=== PATIENT | male | born 1960 | race Two or more races ===

== ENCOUNTER → 2016-09-07 | Outpatient (REF) | payer BC | LOC: M SFHCCLAY 07:13 | PROVIDERS: ATTEND Nurse Practitioner | DX: E11.9 Type 2 diabetes mellitus without complications (principal); Z12.5 Encounter for screening for malignant neoplasm of prostate; Z53.8 Procedure and treatment not carried out for other reasons ==

== ENCOUNTER 2016-10-31 13:20 | Emergency (ER) | payer BC ==
[~2016-10-31] VITALS: Ht 185.4 cm; Wt 89.8 kg
[2016-10-31] MEDS ORDERED: LEVO137T2 (13:36)
[2016-10-31] MEDS ORDERED: INVO300T (13:36)
[2016-10-31] MEDS ORDERED: LANTINJ4 SQ (13:36)
[2016-10-31] MEDS ORDERED: INSUH10VL SC (13:36)
[2016-10-31] MEDS ORDERED: AMLO10CA (13:36)
[2016-10-31 14:59] LABS: BASO % 0.3 % (0.0-1.0); EOS # 0.2 K/mm3 (0.0-0.50); EOS % 1.5 % (0.0-3.0); LARGE UNSTAINED CELL # 0.1 K/mm3 (0.0-0.4); LARGE UNSTAINED CELL % 1.1 % (0.0-4.0); LYMPH # 2.3 K/mm3 (1.5-4.5); LYMPH % 20.1 % (24.0-44.0); MEAN CORPUSCULAR HEMOGLOBIN 30.5 pg (27.0-33.0); MEAN CORPUSCULAR HGB CONC 33.6 g/dl (32.0-36.5); MEAN CORPUSCULAR VOLUME 90.8 fl (80.0-96.0); MONO # 0.5 K/mm3 (0.0-0.8); NEUTROPHILS # 8.4 K/mm3 (1.8-7.7); PLATELET COUNT, AUTOMATED 191 k/mm3 (150-450); RED CELL DISTRIBUTION WIDTH 15.5 % (11.5-14.5); WHITE BLOOD COUNT 11.5 K/mm3 (4.0-10.0)
[2016-10-31 15:08] LABS: ALBUMIN 4.1 GM/DL (3.2-5.2); ALBUMIN/GLOBULIN RATIO 1.52 (1.00-1.93); ALKALINE PHOSPHATASE 89 U/L (45-117); ALT/SGPT 25 U/L (12-78); ANION GAP 13 MEQ/L (8-16); AST/SGOT 13 U/L (15-37); BILIRUBIN,DIRECT 0.1 MG/DL (0.0-0.2); BILIRUBIN,TOTAL 0.4 MG/DL (0.2-1.0); BLOOD UREA NITROGEN 11 MG/DL (7-18); CALCIUM LEVEL 8.8 MG/DL (8.5-10.1); CARBON DIOXIDE LEVEL 23 MEQ/L (21-32); CHLORIDE LEVEL 105 MEQ/L (98-107); CREATININE FOR GFR 0.75 MG/DL (0.70-1.30); FREE T4 1.02 NG/DL (0.76-1.46); GLOMERULAR FILTRATION RATE > 60.0 (>56); GLUCOSE, FASTING 150 MG/DL (70-105); POTASSIUM SERUM 3.3 MEQ/L (3.5-5.1); SODIUM LEVEL 141 MEQ/L (136-145); TOTAL PROTEIN 6.8 GM/DL (6.4-8.2)
--- NOTE | 2016-10-31 15:12 | REP ---
Clinical: Dizziness . Comparison: None . Findings: The ventricles, sulci, and cisterns are normal in position and appearance. Amaro-white differentiation is maintained. No acute intracranial hemorrhage, mass/mass effect, pathology or trauma/injury. No evidence for acute infarction. No extra-axial fluid collection. Calvarium is intact. Paranasal sinuses and mastoid air cells are clear. Impression: Normal noncontrast head CT. No evidence for acute intracranial pathology or trauma/injury. Signed by Ezra Faustin MD 10/31/2016 03:03 P
--- NOTE | 2016-10-31 15:13 | ECGEPIP ---
Stationary ECG Study [facility] [place] - ED Test Date: 2016-10-31 Pat Name: MOLINA MALDONADO Department: Room: - Gender: M [employer]: mike : 1960 Requested By: Mally Garcia Order Number: [id number] Reading MD: Santana Saha Measurements Intervals [place] Rate: 91 P: 46 WY: 166 QRS: 17 QRSD: 102 T: 36 QT: 383 QTc: 472 Interpretive Statements SINUS RHYTHM NSSTW ABNORMALITY SIMILAR TO 04/01/12 Electronically Signed On 10-31-2016 15:12:50 EDT by Santana Saha
[2016-10-31] MEDS ORDERED: POTASSIUM CHLORIDE 10 MEQ SR TABLET PO ONE (15:45)
--- NOTE | 2016-10-31 15:45 | REP ---
Chest x-ray: Two views. History: Dizziness and weakness. . Comparison study: April 20, 2016 . Findings: The lungs are well inflated and free of infiltrate. The pleural angles are sharp. The heart size is normal. Pulmonary vasculature is not increased. No significant bony abnormality is seen. EKG monitoring electrodes overlie the chest. Impression: Negative chest x-ray. Signed by Jono Peterson MD 10/31/2016 03:37 P
[2016-10-31 16:15] VITALS: O2SAT 96
[2016-10-31] MEDS ORDERED: NS 1,000 ML IV ONE (16:15)
[2016-10-31 20:30] VITALS: BP 153/92
--- NOTE | 2016-10-31 21:44 | ECGEPIP ---
Stationary ECG Study [facility] - ED Test Date: 2016-10-31 Pat Name: MOLINA MALDONADO Department: Room: - Gender: M [employer]: tk : 1960 Requested By: GIOVANNA Mata Order Number: [id number] Reading MD: Santana Saha Measurements Intervals [place] Rate: 90 P: 34 SD: 165 QRS: 0 QRSD: 102 T: 37 QT: 381 QTc: 467 Interpretive Statements SINUS RHYTHM NSTTW ABNORMALITIES SIMILAR TO PRIOR ON SAME DATE Electronically Signed On 10-31-2016 21:44:13 EDT by Santana Saha
== END 2016-10-31 20:39 | disposition home or self-care (01) ==
LOC: M ED 14:38
DX: R42 Dizziness and giddiness (principal); R53.83 Other fatigue; E11.9 Type 2 diabetes mellitus without complications; F17.200 Nicotine dependence, unspecified, uncomplicated; Z79.899 Other long term (current) drug therapy; Z79.4 Long term (current) use of insulin

== ENCOUNTER → 2016-12-23 | Outpatient (REF) | payer BC ==
[~2016-12-23] MED LIST: AMLO10CA; INSUH10VL SC; INVO300T; LANTINJ4 SQ; LEVO137T2
[2016-12-23 20:06] LABS: ALBUMIN 3.8 GM/DL (3.2-5.2); ALBUMIN/GLOBULIN RATIO 1.41 (1.00-1.93); ALKALINE PHOSPHATASE 76 U/L (45-117); ALT/SGPT 23 U/L (12-78); ANION GAP 5 MEQ/L (8-16); AST/SGOT 9 U/L (15-37); BILIRUBIN,TOTAL 0.5 MG/DL (0.2-1.0); BLOOD UREA NITROGEN 15 MG/DL (7-18); CALCIUM LEVEL 8.8 MG/DL (8.5-10.1); CARBON DIOXIDE LEVEL 28 MEQ/L (21-32); CHLORIDE LEVEL 107 MEQ/L (98-107); CHOLESTEROL LEVEL 200 MG/DL (<200); CREATININE FOR GFR 0.67 MG/DL (0.70-1.30); GLOMERULAR FILTRATION RATE > 60.0 (>56); GLUCOSE, FASTING 102 MG/DL (70-105); POTASSIUM SERUM 4.1 MEQ/L (3.5-5.1); SODIUM LEVEL 140 MEQ/L (136-145); TOTAL PROTEIN 6.5 GM/DL (6.4-8.2); TRIGLYCERIDES LEVEL 168 MG/DL (<150)
== END ==
LOC: M SFHCCLAY 09:53
PROVIDERS: ATTEND Nurse Practitioner
DX: E11.9 Type 2 diabetes mellitus without complications (principal)

== ENCOUNTER → 2017-11-14 | Outpatient (REF) | payer BC ==
[2017-11-14 17:01] LABS: ESTIMATED AVERAGE GLUCOSE 209 MG/DL (60-110); HEMOGLOBIN A1c 8.9 %
[2017-11-14 17:05] LABS: ALBUMIN 3.8 GM/DL (3.2-5.2); ALBUMIN/GLOBULIN RATIO 1.36 (1.00-1.93); ALKALINE PHOSPHATASE 91 U/L (45-117); ALT/SGPT 29 U/L (12-78); ANION GAP 9 MEQ/L (8-16); AST/SGOT 15 U/L (7-37); BILIRUBIN,TOTAL 0.5 MG/DL (0.2-1.0); BLOOD UREA NITROGEN 15 MG/DL (7-18); CALCIUM LEVEL 8.6 MG/DL (8.5-10.1); CARBON DIOXIDE LEVEL 25 MEQ/L (21-32); CHLORIDE LEVEL 107 MEQ/L (98-107); CHOLESTEROL LEVEL 175 MG/DL (<200); CHOLESTEROL RISK RATIO 4.166 (<5); CREATININE FOR GFR 0.83 MG/DL (0.70-1.30); GLOMERULAR FILTRATION RATE > 60.0 (>56); GLUCOSE, FASTING 129 MG/DL (70-100); HDL CHOLESTEROL 42 MG/DL (>40); NON-HDL-C 133 MG/DL; SODIUM LEVEL 141 MEQ/L (136-145); TOTAL PROTEIN 6.6 GM/DL (6.4-8.2); TRIGLYCERIDES LEVEL 155 MG/DL (<150)
== END ==
LOC: M SFHCCLAY 12:58
DX: E11.9 Type 2 diabetes mellitus without complications (principal); E03.9 Hypothyroidism, unspecified
CPT/HCPCS: 84443

== ENCOUNTER 2018-04-01 11:36 | Emergency (ER) | payer MEDICAID, SELFPAY, BC ==
[2018-04-01] MEDS: NS 1,000 ML IV ×2 (12:56)
[2018-04-01] MEDS: KETOROLAC 30 MG/ML VIAL (J1885) IV ×2 (12:56)
[2018-04-01] MEDS: GASTROGRAFIN SOLUTION 30ML PO ×4 (13:01→13:28)
[2018-04-01 13:02] LABS: BASO % 0.3 % (0.0-1.0); EOS # 0.1 10^3/uL (0.0-0.50); EOS % 1.1 % (0.0-3.0); HEMATOCRIT 42.5 % (42.0-52.0); IMMATURE GRANULOCYTE % 0.6 % (0-3.0); LYMPH # 1.5 10^3/uL (1.5-4.5); MEAN CORPUSCULAR HEMOGLOBIN 30.3 pg (27.0-33.0); MEAN CORPUSCULAR HGB CONC 32.9 g/dl (32.0-36.5); MONO # 0.5 10^3/uL (0.0-0.8); MONO % 5.3 % (0.0-5.0); NEUTROPHILS # 6.7 10^3/uL (1.8-7.7); NEUTROPHILS % 75.7 % (36.0-66.0); PLATELET COUNT, AUTOMATED 189 10^3/uL (150-450); RED BLOOD COUNT 4.62 10^6/uL (4.30-6.10); RED CELL DISTRIBUTION WIDTH 14.4 % (11.5-14.5); WHITE BLOOD COUNT 8.9 10^3/uL (4.0-10.0)
[2018-04-01 13:07] LABS: APPEARANCE, URINE CLEAR (CLEAR); BACTERIA, URINE AUTO NEGATIVE (NEGATIVE); BILIRUBIN, URINE AUTO NEGATIVE (NEGATIVE); BLOOD, URINE BLOOD NEGATIVE (NEGATIVE); COLOR, URINE YELLOW (YELLOW); GLUCOSE, URINE (UA) AUTO NEGATIVE (NEGATIVE); KETONE, URINE AUTO NEGATIVE (NEGATIVE); LEUKOCYTE ESTERASE, URINE AUTO NEGATIVE (NEGATIVE); MUCUS, URINE SMALL (NEGATIVE); NITRITE, URINE AUTO NEGATIVE (NEGATIVE); PROTEIN, URINE AUTO NEGATIVE (NEGATIVE); RBC, URINE AUTO 1 /HPF (0-3); SPECIFIC GRAVITY URINE AUTO 1.014 (1.002-1.035); SQUAMOUS EPITHELIAL CELL UR AU 0 /HPF (0-6); WBC, URINE AUTO 0 /HPF (0-3)
[2018-04-01 13:37] LABS: ALBUMIN 3.2 GM/DL (3.2-5.2); ALBUMIN/GLOBULIN RATIO 1.07 (1.00-1.93); ALKALINE PHOSPHATASE 74 U/L (45-117); ALT/SGPT 19 U/L (12-78); AMYLASE 62 U/L (25-115); ANION GAP 9 MEQ/L (8-16); AST/SGOT 9 U/L (7-37); BILIRUBIN,TOTAL 0.3 MG/DL (0.2-1.0); BLOOD UREA NITROGEN 11 MG/DL (7-18); C REACTIVE PROTEIN QUANTITATIV 6.14 MG/DL (0.00-0.30); CARBON DIOXIDE LEVEL 28 MEQ/L (21-32); CHLORIDE LEVEL 105 MEQ/L (98-107); CREATININE FOR GFR 0.79 MG/DL (0.70-1.30); GLOMERULAR FILTRATION RATE > 60.0 (>56); GLUCOSE, FASTING 212 MG/DL (70-100); LIPASE 687 U/L (73-393); SODIUM LEVEL 142 MEQ/L (136-145); TOTAL PROTEIN 6.2 GM/DL (6.4-8.2)
[2018-04-01 14:09] LABS: CONTROL LINE MONO RF C INT CTR LINE PRESENT; MONO REFLEX EBV COMP NEGATIVE (NEGATIVE)
[2018-04-01] MEDS ORDERED: ISOVUE-370 76% 100ML VIAL (Q9967) As Ordered ×2 (14:20)
[2018-04-01] MEDS: METOPROLOL SUCC (TopROL XL) 50MG **XL** TAB PO ×2 (16:15)
[2018-04-03 14:11] LABS: EBV AB TO NUCLEAR ANTIGEN >600.0 U/mL (0.0-17.9); EBV VIRAL CAPSID AG IgG >600.0 U/mL (0.0-17.9)
[2018-04-03 14:11] LABS: EBV VIRAL CAPSID AG IgM <36.0 U/mL (0.0-35.9)
== END 2018-04-01 17:13 | disposition home or self-care (01) ==
LOC: M ED 11:36
DX: K85.90 Acute pancreatitis without necrosis or infection, unspecified (principal); E10.9 Type 1 diabetes mellitus without complications; I10 Essential (primary) hypertension; E03.9 Hypothyroidism, unspecified; F41.9 Anxiety disorder, unspecified; F33.9 Major depressive disorder, recurrent, unspecified; Z79.899 Other long term (current) drug therapy; Z79.890 Hormone replacement therapy; Z79.4 Long term (current) use of insulin; F17.210 Nicotine dependence, cigarettes, uncomplicated
CPT/HCPCS: Q9963

== ENCOUNTER 2018-05-04 06:48 | Emergency (ER) | payer SELFPAY ==
[2018-05-04] MEDS: NS 500 ML IV ×2 (07:34→11:03)
[2018-05-04 07:40] LABS: BASO # 0.1 10^3/uL (0.0-0.2); BASO % 0.6 % (0.0-1.0); EOS # 0.2 10^3/uL (0.0-0.50); EOS % 1.7 % (0.0-3.0); HEMATOCRIT 41.3 % (42.0-52.0); HEMOGLOBIN 13.4 g/dl (13.5-17.5); IMMATURE GRANULOCYTE % 0.3 % (0-3.0); LYMPH # 1.4 10^3/uL (1.5-4.5); LYMPH % 15.7 % (24.0-44.0); MEAN CORPUSCULAR HEMOGLOBIN 29.8 pg (27.0-33.0); MEAN CORPUSCULAR HGB CONC 32.4 g/dl (32.0-36.5); MEAN CORPUSCULAR VOLUME 91.8 fl (80.0-96.0); MONO # 0.5 10^3/uL (0.0-0.8); NEUTROPHILS # 6.8 10^3/uL (1.8-7.7); NEUTROPHILS % 75.7 % (36.0-66.0); PLATELET COUNT, AUTOMATED 116 10^3/uL (150-450); RED CELL DISTRIBUTION WIDTH 15.3 % (11.5-14.5)
[2018-05-04] MEDS: MORPHINE 2 MG/ML 1ML SYRINGE (J2270) IV (09:07)
[2018-05-04] MEDS: NS 1,000 ML IV (09:07)
[2018-05-04 09:42] LABS: ALBUMIN 3.4 GM/DL (3.2-5.2); ALBUMIN/GLOBULIN RATIO 1.06 (1.00-1.93); ALKALINE PHOSPHATASE 93 U/L (45-117); ALT/SGPT 23 U/L (12-78); AMYLASE 73 U/L (25-115); ANION GAP 8 MEQ/L (8-16); AST/SGOT 10 U/L (7-37); BILIRUBIN,DIRECT 0.1 MG/DL (0.0-0.2); BILIRUBIN,TOTAL 0.4 MG/DL (0.2-1.0); BLOOD UREA NITROGEN 11 MG/DL (7-18); CALCIUM LEVEL 8.5 MG/DL (8.5-10.1); CARBON DIOXIDE LEVEL 25 MEQ/L (21-32); CHLORIDE LEVEL 104 MEQ/L (98-107); CREATININE FOR GFR 0.85 MG/DL (0.70-1.30); GLOMERULAR FILTRATION RATE > 60.0 (>56); GLUCOSE, FASTING 292 MG/DL (70-100); LIPASE 857 U/L (73-393); SODIUM LEVEL 137 MEQ/L (136-145); TOTAL PROTEIN 6.6 GM/DL (6.4-8.2)
[2018-05-04 09:45] LABS: KETONE, URINE AUTO RFX TRACE mg/dL (NEGATIVE); LEUKOCYTE ESTERASE UR AUTO RFX NEGATIVE (NEGATIVE); NITRITE, URINE AUTO RFX NEGATIVE (NEGATIVE); RBC, URINE AUTO RFX 1 /HPF (0-3); SPECIFIC GRAVITY UR AUTO RFX 1.014 (1.002-1.035); SQUAM EPITHELIAL CELL UR AURFX 0 /HPF (0-6); WBC, URINE AUTO RFX 0 /HPF (0-3)
[2018-05-04 10:13] LABS: C REACTIVE PROTEIN QUANTITATIV 1.21 MG/DL (0.00-0.30)
[2018-05-04 12:57] LABS: LACTIC ACID SEPSIS PROTOCOL 1.2 MMOL/L (0.4-2.0)
== END 2018-05-04 14:13 | disposition home or self-care (01) ==
LOC: M ED 06:48
DX: K85.90 Acute pancreatitis without necrosis or infection, unspecified (principal); E86.0 Dehydration; I10 Essential (primary) hypertension; E11.9 Type 2 diabetes mellitus without complications; E78.5 Hyperlipidemia, unspecified; K27.9 Peptic ulcer, site unspecified, unspecified as acute or chronic, without hemorrhage or perforation; F17.210 Nicotine dependence, cigarettes, uncomplicated; Z79.899 Other long term (current) drug therapy; Z79.4 Long term (current) use of insulin
CPT/HCPCS: J2270

== ENCOUNTER → 2018-05-10 | Outpatient (REF) | payer BC ==
[2018-05-10 16:55] LABS: ALBUMIN 3.6 GM/DL (3.2-5.2); ALBUMIN/GLOBULIN RATIO 1.44 (1.00-1.93); ALKALINE PHOSPHATASE 87 U/L (45-117); ALT/SGPT 25 U/L (12-78); AMYLASE 45 U/L (25-115); ANION GAP 9 MEQ/L (8-16); AST/SGOT 12 U/L (7-37); BILIRUBIN,TOTAL 0.4 MG/DL (0.2-1.0); BLOOD UREA NITROGEN 12 MG/DL (7-18); CALCIUM LEVEL 8.4 MG/DL (8.5-10.1); CARBON DIOXIDE LEVEL 27 MEQ/L (21-32); CHLORIDE LEVEL 106 MEQ/L (98-107); CREATININE FOR GFR 0.69 MG/DL (0.70-1.30); GLOMERULAR FILTRATION RATE > 60.0 (>56); GLUCOSE, FASTING 180 MG/DL (70-100); LIPASE 360 U/L (73-393); POTASSIUM SERUM 4.3 MEQ/L (3.5-5.1); SODIUM LEVEL 142 MEQ/L (136-145); TOTAL PROTEIN 6.1 GM/DL (6.4-8.2)
[2018-05-10 16:57] LABS: ESTIMATED AVERAGE GLUCOSE 177 MG/DL (60-110); HEMOGLOBIN A1c 7.8 %
== END ==
LOC: M SFHCCLAY 10:28
DX: K85.00 Idiopathic acute pancreatitis without necrosis or infection (principal); E11.9 Type 2 diabetes mellitus without complications
CPT/HCPCS: 82150

== ENCOUNTER → 2018-06-08 | Outpatient (REF) | payer MEDICAID ==
[~2018-06-08] MED LIST changes: +ATOR80TA59 PO; +IBUP80TA PO; +INSUR SC; +KETO10TAB PO; +LISI40TA PO; +METF10004 PO; +METF500T13 PO; +VICO5TAB16 PO
[2018-06-08 17:31] LABS: ALBUMIN 3.5 GM/DL (3.2-5.2); ALT/SGPT 23 U/L (12-78); AMYLASE 48 U/L (25-115); BILIRUBIN,TOTAL 0.3 MG/DL (0.2-1.0); BLOOD UREA NITROGEN 11 MG/DL (7-18); CALCIUM LEVEL 8.8 MG/DL (8.5-10.1); CARBON DIOXIDE LEVEL 27 MEQ/L (21-32); CHLORIDE LEVEL 109 MEQ/L (98-107); CREATININE FOR GFR 0.73 MG/DL (0.70-1.30); GLOMERULAR FILTRATION RATE > 60.0 (>56); GLUCOSE, FASTING 126 MG/DL (70-100); LIPASE 356 U/L (73-393); POTASSIUM SERUM 4.2 MEQ/L (3.5-5.1); SODIUM LEVEL 142 MEQ/L (136-145); TOTAL PROTEIN 6.1 GM/DL (6.4-8.2)
== END ==
LOC: M SFHCCLAY 10:44
PROVIDERS: ATTEND Family Medicine
DX: K85.00 Idiopathic acute pancreatitis without necrosis or infection (principal)

== ENCOUNTER → 2018-06-30 | Outpatient (CLI) | payer OTHER ==
--- NOTE | 2018-07-02 07:17 | REP ---
MRI ABDOMEN WITHOUT CONTRAST: 06/30/2018. COMPARISON: CT abdomen with contrast 04/01/2018, CT angiogram chest 04/01/2012. CLINICAL HISTORY: Adrenal nodule. Review of the prior studies demonstrates that right side and low-density adrenal nodule measuring 2.6 cm and diffuse thickening of the limbs of the left adrenal without discrete nodule or mass. Both of these are contrast studies. In addition, the technologist notes indicate the patient stated that he had "upper mid abdominal pain now and in his left lower side". TECHNIQUE: Axial T2 and fat suppressed T2, in- and hgy-bj-bazti axial gradient echo, fat suppressed gradient-echo and diffusion-weighted images and ADC mapping sequences. Coronal T1 and gradient echo images were also obtained. FINDINGS: The right adrenal nodules in the medial limb and measures 2.6 cm, unchanged in size and contour dating back to 2011. Thickening of the left adrenal gland is likewise unchanged dating back to 2011 for contour appearance and size. On the in- and nyq-lf-eswko images there is significant signal drop off on the outer phase sequences indicating high fat content in both adrenal glands, and in particular, the nodule left and the entire adrenal gland right. There is no visible abnormality in the segments of liver and spleen included. There does appear to be some debris in the neck of the gallbladder but no definite stone appearance. There is no common duct dilatation. Pancreatic duct is not abnormally dilated. There are few tiny cystic areas in the pancreatic head as well as the adjacent splenic vein and portal confluence. No peripancreatic adenopathy or adjacent fluid. There is no hydronephrosis within the visible kidneys. There is a lower pole cyst on the left as seen on the CT abdomen pelvis last March. Atherosclerotic disease of the abdominal aorta is noted but only a portion of that organ is occluded. There is some ectasia. No periaortic or retroperitoneal pathologic sized adenopathy. There is a small splenule adjacent to the inferior pole of the spleen unchanged. Diffusion images show no additional findings. IMPRESSION: 1. Stable appearance of both adrenal glands dating back to the March, CT angio chest, although the study is with contrast. Regardless, the stability for over 6 years for size and contour of both lesions is reassuring. 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 2. There are no other significant findings in the abdomen, small amount of debris or sludge in the neck of the gallbladder without biliary dilatation. A cyst in the left kidney unchanged. Electronically Signed by Clint Rowland MD 07/02/2018 01:01 P
== END ==
LOC: M RAD 09:08
PROVIDERS: ATTEND Family Medicine
DX: E27.9 Disorder of adrenal gland, unspecified (principal)

== ENCOUNTER → 2018-07-09 | Outpatient (CLI) | payer OTHER ==
--- NOTE | 2018-07-09 10:27 | REP ---
Clinical: Pancreatitis. Technique: Real time beltran scale ultrasound examination using curved array transducer. Findings: Diffuse fatty infiltration to the liver is appreciated without evidence for focal hepatic lesion identified. Gallbladder is mildly distended and includes 7 mm polyp along the anterior wall without gallstones, wall thickening, or pericholecystic fluid. No biliary ductal dilatation is appreciated and the common bile duct measures 6.6 mm diameter. The pancreas is incompletely evaluated due to interposed bowel gas but visualized portions appear relatively normal. Right kidney is normal in reniform shape without hydronephrosis and measures 12.6 x 7.3 x 6.6 cm. No ascites in the visualized right upper quadrant. The adrenal mass identified on CT dated 04/01/2018 which likely represented adenoma based on low density characteristics is not visualized by current ultrasound. Impression: 1. Hepatosteatosis without focal hepatic lesion identified. 2. 7 mm gallbladder polyp likely benign. No further biliary abnormality appreciated. Electronically Signed by Ezra Faustin MD 07/09/2018 10:18 A
== END ==
LOC: M RAD 08:32
PROVIDERS: ATTEND Internal Medicine Gastroenterology
DX: K85.00 Idiopathic acute pancreatitis without necrosis or infection (principal); K82.4 Cholesterolosis of gallbladder; K76.0 Fatty (change of) liver, not elsewhere classified

== ENCOUNTER → 2018-08-01 | Outpatient (REF) | payer OTHER ==
[~2018-08-01] MED LIST changes: +HUMA100I5; +INSULANT SC; +LOSA100T5 PO; +OLME40TA PO; +SYNT137T7 PO
[2018-08-01 18:48] LABS: ALBUMIN 3.3 GM/DL (3.2-5.2); ALT/SGPT 29 U/L (12-78); AMYLASE 40 U/L (25-115); BILIRUBIN,DIRECT < 0.1 MG/DL (0.0-0.2); BILIRUBIN,TOTAL 0.4 MG/DL (0.2-1.0); LIPASE 287 U/L (73-393); TOTAL PROTEIN 6.4 GM/DL (6.4-8.2)
[2018-08-03 15:52] LABS: CA19-9 TUMOR MARKER,CARBOHYDRA 192.6 U/ML (<35.0)
== END ==
LOC: M LABDRAWC 17:24
PROVIDERS: ATTEND Internal Medicine Gastroenterology
DX: K85.00 Idiopathic acute pancreatitis without necrosis or infection (principal)

== ENCOUNTER 2018-08-07 11:23 | Day surgery (SDC) | payer OTHER ==
[~2018-08-07] VITALS: Ht 185.4 cm; Wt 91.2 kg
[~2018-08-07 11:23] MED LIST changes: +NS 1,000 ML IV ONE
[2018-08-07] MEDS ORDERED: fentaNYL 100 MCG/2 ML INJECTION (J3010) As Ordered ONE (12:05)
[2018-08-07] MEDS ORDERED: PROPOFOL 200 MG/20 ML VIAL As Ordered ONE (12:23)
[2018-08-07] MEDS ORDERED: LIDOCAINE 2% INJ 100 MG/5 ML SYRINGE As Ordered ONE (12:23)
--- NOTE | 2018-08-07 13:12 | ROOR ---
Patient Name: Donald Neil Procedure Date: 08/07/2018 12:27 PM Date of : 1960 Age: 58 Room: [facility] Gender: Male Note Status: Finalized Procedure: Upper GI endoscopy Indications: Epigastric abdominal pain, Pancreatitis. (mildly elevated CA 19-9 = 192 u/ml) Providers: Andreas DOBSON MD Referring MD: ANGELES SANTOS DO Requesting Provider: Medicines: Monitored Anesthesia Care Complications: No immediate complications. Procedure: Pre-Anesthesia Assessment: - The heart rate, respiratory rate, oxygen saturations, blood pressure, adequacy of pulmonary ventilation, and response to care were monitored throughout the procedure. The Endoscope was introduced through the mouth, and advanced to the second part of duodenum. The upper GI endoscopy was accomplished without difficulty. The patient tolerated the procedure well. Findings: The examined esophagus was normal. Diffuse mild inflammation was found in the entire examined stomach. Biopsies were taken with a cold forceps for histology. The exam of the stomach was otherwise normal. The examined duodenum was normal. Impression: - Normal esophagus. - Mild gastritis. Biopsied. - The stomach is otherwise normal. - Normal examined duodenum. Recommendation: - Telephone endoscopist for pathology results in 2 weeks. - Perform a colonoscopy today. As you are leaving our area shortly for [facility], you will need the following information: (I will include my office note and labs/scans with this letter: - Your MRI showed sludge and gravel in your gallbladder, no ductal dilation, no CBD stones - Your US was normal. - Your Liver enzymes and pancreatic enzymes are normal - Your CA 19-9 was mildly elevated (likely from pancreatitis) - You will need to follow up with a internal sales to follow up and recheck your Ca 19-9. - You will need to see a surgeon to have your gallbladder removed for gallstone/sludge pancreatitis) Andreas Dobson MD Andreas DOBSON MD 08/07/2018 1:11:56 PM This report has been signed electronically. Number of Addenda: 0 Note Initiated On: 08/07/2018 12:27 PM Estimated Blood Loss: Estimated blood loss: none.
--- NOTE | 2018-08-07 13:15 | ROOR ---
Patient Name: Donald Neil Procedure Date: 08/07/2018 12:28 PM Date of : 1960 Age: 58 Room: [facility] Gender: Male Note Status: Finalized Procedure: Colonoscopy Indications: Screening for colorectal malignant neoplasm Providers: Andreas DOBSON MD Referring MD: ANGELES SANTOS DO Requesting Provider: Medicines: Monitored Anesthesia Care Complications: No immediate complications. Procedure: Pre-Anesthesia Assessment: - The heart rate, respiratory rate, oxygen saturations, blood pressure, adequacy of pulmonary ventilation, and response to care were monitored throughout the procedure. The Colonoscope was introduced through the anus and advanced to 5 cm into the ileum. The colonoscopy was performed without difficulty. The colonoscopy was performed without difficulty. The patient tolerated the procedure well. The quality of the bowel preparation was inadequate/suboptimal. Findings: The perianal and digital rectal examinations were normal. (EXAM: Complete, PREP: Suboptimal) A 4 mm polyp was found in the sigmoid colon. The polyp was sessile. The polyp was removed with a cold snare. Resection and retrieval were complete. The colon (entire examined portion) was moderately redundant. Small Internal Hemorrhoids. The exam was otherwise without abnormality on direct and retroflexion views. Impression: - (EXAM: Complete, PREP: Suboptimal) - One 4 mm polyp in the sigmoid colon, removed with a cold snare. Resected and retrieved. - Small Internal Hemorrhoids. - Redundant colon. - The examination was otherwise normal on direct and retroflexion views. Recommendation: - Repeat colonoscopy in 2 years because the bowel preparation was suboptimal. Andreas Dobson MD Andreas DOBSON MD 08/07/2018 1:15:25 PM This report has been signed electronically. Number of Addenda: 0 Note Initiated On: 08/07/2018 12:28 PM Estimated Blood Loss: Estimated blood loss: none.
[2018-08-07 13:30] VITALS: BP 142/83
== END 2018-08-07 14:35 | disposition home or self-care (01) ==
LOC: M OPP 11:23
PROVIDERS: ATTEND Internal Medicine Gastroenterology
DX: Z12.11 Encounter for screening for malignant neoplasm of colon (principal); D12.5 Benign neoplasm of sigmoid colon; Q43.8 Other specified congenital malformations of intestine; K29.70 Gastritis, unspecified, without bleeding; R10.13 Epigastric pain; K85.90 Acute pancreatitis without necrosis or infection, unspecified; Z79.1 Long term (current) use of non-steroidal anti-inflammatories (NSAID); Z79.899 Other long term (current) drug therapy; Z80.3 Family history of malignant neoplasm of breast
CPT/HCPCS: 43239; 45385; 88305; J3010